=== PATIENT | female | born 1995 | race Caucasian/White ===

== ENCOUNTER 2017-04-09 05:17 | Inpatient (IN) ==
--- NOTE | 2017-04-08 18:14 | HISTORY AND PHYSICAL ---
ADMITTING PHYSICIAN: Brian Giles MD ADMITTING DIAGNOSES: 1. Term . 2. Previous requesting repeat section. 3. Undesired fertility. HISTORY OF PRESENT ILLNESS: In summary, Edel Livingston is a 21-year-old 2, para 1-0-0- 1, who is at term gestation. Her blood type is O negative rubella immune. Hepatitis B surface antigen, HIV, and group B strep is negative. Her has been without complications. Her first ended in a section for post dates and cephalopelvic disproportion. She is now at term gestation. She is requesting repeat . She also desires tubal sterilization. She understands the nonreversible nature of tubal sterilization. She understands that there is recognized failure rate to the procedure. She is aware of alternative control methods available to her. We discussed the risks of tubal sterilization and the surgery in general including pain, bleeding, infection, bowel or bladder injury, and anesthesia complications. PAST MEDICAL HISTORY: Patient has no chronic medical or surgical illnesses. PAST SURGICAL HISTORY: Her only surgical procedure is the section in 2013. ALLERGIES: None. CURRENT MEDICATIONS: vitamins. PHYSICAL EXAMINATION: GENERAL: Shows a well-developed, well-nourished, gravid female. Her weight is 177. Blood pressure is 122/78. CARDIOVASCULAR: Regular rate and rhythm without murmurs, rubs, or gallops. PULMONARY: Clear. BREASTS: No masses. ABDOMEN: Gravid. Cervix is closed. EXTREMITIES: Trace edema impression. IMPRESSION: 1. Term . 2. Previous requesting repeat section. 3. Undesired fertility. PLAN: We will proceed with repeat and tubal sterilization. Risks, benefits, possible complications and reasonable expectations have been discussed in detail. cc: Brian Giles MD
[2017-04-09] MEDS ORDERED: KEFZOL 1 GM/D5W 1 GM/50 ML IVPB IV PRN (05:22)
[2017-04-09] MEDS ORDERED: BICITRA PO ONE (05:30)
[2017-04-09] MEDS ORDERED: PEPCID IV ONE (05:45)
[2017-04-09] MEDS ORDERED: SODIUM CHLORIDE 0.9% INJ ONE ×2 (05:45→09:22)
[2017-04-09] MEDS: LR 1,000 ML IV SCH ×2 (05:51→06:24)
[2017-04-09 06:08] LABS: URINE SOURCE VOIDED
[2017-04-09 06:08] LABS: MANUAL DIFF NEEDED? NO
[2017-04-09 06:12] LABS: BASO% 0.5 % (0.0-0.8); EOS# 0.09 X1000 (0.0-0.7); EOS% 1.1 % (0.0-10.0); HEMATOCRIT 32.7 % (37.0-47.0); HEMOGLOBIN 10.5 g/dL (12.0-16.0); IMM GRAN# 0.04 X1000 (0.0-0.04); IMM GRAN% 0.5 % (0.0-0.5); LYMPH# 1.76 X1000 (1.2-3.4); MCH 25.4 PG (27-31); MCHC 32.1 g/dL (33-37); MCV 79.2 FL (81-99); MONO# 0.77 X1000 (0.11-0.59); MONO% 9.2 % (1.7-9.3); MPV 10.9 FL (7.4-10.4); NEUT% 67.7 % (42.2-75.2); PLT 227 X1000 (130-400); RBC 4.13 XMIL (4.2-5.4)
[2017-04-09 06:20] LABS: BILIRUBIN URINE 1+ (NEGATIVE); BLOOD URINE NEGATIVE (NEGATIVE); CLARITY CLEAR (CLEAR); COLOR ORANGE; GLUCOSE URINE NEGATIVE (NEGATIVE); LEUKOCYTES URINE 1+ (NEGATIVE); NITRITE URINE NEGATIVE (NEGATIVE); PH URINE 6.5; PROTEIN URINE 2+(100 mg/dL) mg/dL (NEGATIVE)
[2017-04-09 06:21] LABS: UROBILINOGEN URINE 3+(8 mg/dL)
[2017-04-09] MEDS ORDERED: ZOFRAN ONE ×2 (06:25→07:20)
[2017-04-09] MEDS ORDERED: PITOCIN ONE (06:25)
[2017-04-09] MEDS ORDERED: PITOCIN 20 UNITS/LR 20 UNITS/1,000 ML IV.SOLN ONE (06:25)
[2017-04-09] MEDS ORDERED: DURAMORPH ONE (06:26)
[2017-04-09] MEDS ORDERED: EPHEDRINE ONE (06:26)
[2017-04-09] MEDS ORDERED: ROBINUL ONE ×2 (07:10→07:20)
[2017-04-09] MEDS ORDERED: TORADOL ONE (07:20)
[2017-04-09] MEDS ORDERED: NEO-SYNEPHRINE ONE (07:20)
[2017-04-09] MEDS ORDERED: PITOCIN IM PRN (08:05)
[2017-04-09] MEDS ORDERED: PHENERGAN IM PRN (08:05)
[2017-04-09] MEDS ORDERED: PERCOCET-5 PO PRN (08:05)
[2017-04-09] MEDS ORDERED: DEMEROL PO PRN ×2 (08:05)
[2017-04-09] MEDS ORDERED: PITOCIN 20 UNITS/LR 20 UNITS/1,000 ML IV.SOLN IV ONE (08:05)
[2017-04-09] MEDS ORDERED: HYDROXYZINE IM PRN (08:05)
[2017-04-09] MEDS ORDERED: PITOCIN 10 UNITS/LR 10 UNIT/1,000 ML IV.SOLN IV SCH (08:05)
[2017-04-09] MEDS ORDERED: CYTOTEC PO PRN (08:05)
[2017-04-09] MEDS ORDERED: AMBIEN PO PRN (08:05)
[2017-04-09] MEDS ORDERED: M-M-R II VACCINE SUBQ ONE (08:05)
[2017-04-09] MEDS ORDERED: DEMEROL IM PRN (08:05)
[2017-04-09] MEDS ORDERED: DULCOLAX PR PRN (08:05)
[2017-04-09] MEDS ORDERED: NORCO-5 PO PRN (08:05)
[2017-04-09] MEDS ORDERED: BOOSTRIX VACCINE IM ONE (08:05)
[2017-04-09] MEDS ORDERED: HYDROXYZINE PO PRN (08:05)
[2017-04-09] MEDS ORDERED: MYLICON PO PRN (08:05)
[2017-04-09] MEDS ORDERED: NORCO-10 PO PRN (08:05)
[2017-04-09] MEDS ORDERED: ZOFRAN IV PRN ×2 (08:10)
[2017-04-09] MEDS ORDERED: BENADRYL IV PRN (08:10)
[2017-04-09] MEDS ORDERED: ZOFRAN ODT PO PRN (08:10)
[2017-04-09] MEDS ORDERED: NARCAN INJ PRN (08:10)
[2017-04-09] MEDS ORDERED: MORPHINE IV PRN (08:11)
--- NOTE | 2017-04-09 08:13 | OPERATIVE NOTE ---
PROCEDURE DATE: 04/09/2017 SURGEON: Dr. Brian Giles. SEPTIC TECHNICIAN: Dr. Brian Grace. ANESTHESIA: Spinal. OPERATION PERFORMED: Repeat low transverse section and tubal sterilization. PREOPERATIVE DIAGNOSES: 1. Term . 2. Previous section. Requesting repeat section. 3. Undesired fertility. POSTOPERATIVE DIAGNOSES: 1. Term . 2. Previous section. Requesting repeat section. 3. Undesired fertility. FINDINGS: At 0712, an 8 pound 9 ounce male was delivered in a vertex presentation by repeat low transverse section. There was a nuchal cord x1. Apgars were 9 at 1 minute and 10 at 5 minutes. SUMMARY: The patient was taken back to operating room where spinal anesthetic was placed. She was then placed in supine position with left lateral tilt. A Laguerre catheter was placed in urinary bladder. The abdomen is prepped and draped in usual fashion. Once satisfactory conduction anesthesia was demonstrated, a repeat Pfannenstiel incision was made. This incision was taken down to the fascia, and the fascia was excised transversely. The underlying rectus muscle was bluntly and sharply dissected free. The rectus muscle was in midline. The peritoneum was entered. Lower uterine segment was identified. A bladder flap was created. A low transverse incision was made. This incision was taken down to the membranes. The membranes were ruptured revealing clear fluid. The incision was then extended laterally using digital pressure. The infant's head was delivered through this incision without difficulty. The nuchal cord was reduced. The shoulders and body delivered without complications. Oropharynx was bulb suctioned. The cord was clamped and cut. Infant was handed to the nurses for further care and evaluation. Cord blood was obtained. Placenta was manually removed. Uterus was delivered onto the abdominal wall and explored. All membrane fragments were removed. The myometrium was then reapproximated using a running #0 chromic suture followed by several [id number] chromic sutures for complete hemostasis across the suture line. At this point, a bilateral fimbriectomy was performed without difficulty. The uterus was placed back in the pelvic cavity. The uterine incision and tubal ligation sites were examined and found to be hemostatic. The pelvic cavity was irrigated with copious amounts of sterile water. Again, hemostasis was noted at all operative sites. Our first and second sponge, instrument, and needle counts have been reported as correct at this time. The peritoneum was closed using a running chromic suture. Fascia was closed using running Vicryl sutures x2. A third and final sponge, instrument, and needle counts were reported as correct at this time. The adipose tissue was reapproximated using running 3-0 chromic suture. The skin edges were reapproximated using a 3-0 Monocryl suture. Blood loss approximately 600 mL. There were no complications. The patient went to the recovery room in stable condition. cc: Brian iGles MD
[2017-04-09] MEDS: MYLICON PO SCH ×4 (09:07→19:51)
[2017-04-09] MEDS ORDERED: PHENERGAN IV ONE (09:22)
[2017-04-09] MEDS: TORADOL IV SCH ×3 (09:25→19:52)
[2017-04-09] MEDS: PERCOCET-10 PO PRN (18:27)
[2017-04-09] MEDS: PERICOLACE PO SCH (19:52)
[2017-04-10] MEDS: TORADOL IV SCH (01:21)
[2017-04-10] MEDS ORDERED: LR 1,000 ML ONE (03:36)
[2017-04-10] MEDS: PERICOLACE PO SCH ×2 (03:39→21:18)
[2017-04-10] MEDS: MYLICON PO SCH ×5 (03:39→21:18)
[2017-04-10] MEDS: PERCOCET-10 PO PRN ×4 (06:34→21:29)
[2017-04-10 06:49] LABS: HEMATOCRIT 22.4 % (37.0-47.0); HEMOGLOBIN 6.9 g/dL (12.0-16.0); MCH 25.3 PG (27-31); MCHC 30.8 g/dL (33-37); MCV 82.1 FL (81-99); MPV 10.3 FL (7.4-10.4); RBC 2.73 XMIL (4.2-5.4)
[2017-04-10] MEDS ORDERED: LR 1,000 ML IV SCH (07:47)
[2017-04-10] MEDS: MOTRIN PO PRN ×2 (12:02→21:29)
[2017-04-10 12:26] LABS: HEMATOCRIT 23.8 % (37.0-47.0); HEMOGLOBIN 7.4 g/dL (12.0-16.0)
[2017-04-11] MEDS: PERCOCET-10 PO PRN (01:59)
[2017-04-11 07:47] VITALS: BP 120/73
[2017-04-11] MEDS: MYLICON PO SCH (09:27)
[2017-04-11] MEDS: MOTRIN PO PRN (09:28)
--- NOTE | 2017-04-11 15:51 | DISCHARGE SUMMARY ---
ADMISSION DATE: 04/09/2017 DISCHARGE DATE: 04/11/2017 ADMITTING DIAGNOSES: 1. Intrauterine at term. 2. Prior . 3. Desires sterility. HISTORY OF PRESENT ILLNESS: Patient is a 21-year-old, G2, P1, with intrauterine at term, who presented for repeat section with bilateral tubal ligation. Please see full operative report for details. Postoperatively, patient was transferred to the floor for routine postop care. On postop day #1, Laguerre catheter was discontinued and patient demonstrated the ability to void. Hematocrit returned 22.4 with a repeat of 23.8. The patient's vital signs stable throughout. Patient asymptomatic and on postop day #2 the patient was tolerating a regular diet, ambulating without difficulty and was felt to be stable for discharge home. DISCHARGE DISPOSITION: The patient is discharged home. PRIMARY PROCEDURE: Repeat section with bilateral tubal ligation. The patient to follow up in 1 week for postop visit. cc: MD Brian Reynoso MD
== END 2017-04-11 11:58 | disposition home or self-care (01) ==
LOC: P.LD 05:17 → P.WC 15:15
PROVIDERS: ADMIT Obstetrics & Gynecology; ATTEND Obstetrics & Gynecology